=== PATIENT | female | born 1965 | race Native Hawaiian/Other Pacific Islander ===

== ENCOUNTER → 2023-05-08 | Outpatient (CLI) | payer BC, OTHER | LOC: MHCPAIN 14:57 | DX: M54.81 Occipital neuralgia (principal); Z98.890 Other specified postprocedural states | CPT/HCPCS: G0463 ==

== ENCOUNTER → 2023-08-15 | Outpatient (CLI) | payer BC, OTHER | LOC: MHCPAIN 10:58 | DX: M25.512 Pain in left shoulder (principal); M54.81 Occipital neuralgia; M79.18 Myalgia, other site; M50.30 Other cervical disc degeneration, unspecified cervical region | CPT/HCPCS: G0463 ==

== ENCOUNTER → 2023-08-27 | Outpatient (CLI) | payer BC, OTHER | LOC: COL.RAD 12:56 | DX: M25.512 Pain in left shoulder (principal) ==

== ENCOUNTER → 2023-10-30 | Outpatient (CLI) | payer BC | LOC: MHCPAIN 13:56 | DX: M54.81 Occipital neuralgia (principal); M25.512 Pain in left shoulder; M75.122 Complete rotator cuff tear or rupture of left shoulder, not specified as traumatic; M50.30 Other cervical disc degeneration, unspecified cervical region | CPT/HCPCS: G0463 ==

== ENCOUNTER → 2023-11-13 | Outpatient (CLI) | payer BC ==
[~2023-11-13] MED LIST: Atropine 1 MG/10 ML SYRINGE IV ONE; Iohexol 300 - 10 ML VIAL ONE; Lidocaine PF 2% (20 MG/ML) 2 ML VIAL ONE; ePHEDrine 50 MG/10 ML VIAL IV ONE
== END ==
LOC: MHCPAIN 14:16
DX: M54.12 Radiculopathy, cervical region (principal)
CPT/HCPCS: J0461; J1100; Q9967

== ENCOUNTER → 2023-12-04 | Outpatient (CLI) | payer BC | LOC: MHCPAIN 14:50 | DX: M54.81 Occipital neuralgia (principal); M75.122 Complete rotator cuff tear or rupture of left shoulder, not specified as traumatic; M50.30 Other cervical disc degeneration, unspecified cervical region | CPT/HCPCS: G0463 ==

== ENCOUNTER → 2024-06-28 | Outpatient (CLI) | payer BC, OTHER | LOC: COL.RAD 15:17 | DX: M47.26 Other spondylosis with radiculopathy, lumbar region (principal) ==

== ENCOUNTER → 2024-07-26 | Outpatient (CLI) | payer BC ==
[~2024-07-26] MED LIST changes: +Glycopyrrolate 0.2 MG/ML 1 ML VIAL ONE
== END ==
LOC: MHCPAIN 07:44
DX: M54.12 Radiculopathy, cervical region (principal); M54.81 Occipital neuralgia
CPT/HCPCS: J0461; J1100; Q9967